=== PATIENT | female | born 1955 | race Caucasian/White ===

== ENCOUNTER 2023-04-18 02:46 | Emergency (ER) | payer MEDICARE, SELFPAY ==
--- NOTE | ~2023-04-18 | XR_ITS ---
Supine and upright views of the abdomen Clinical history: Foreign body Findings: Bowel gas pattern is nonspecific. No evidence for obstruction or free air. Calcified uterin e fibroid noted. Calcified splenic granulomas are present. Osseous structures are intact. Impression: No radiopaque foreign body evident. Calcified uterine fibroid. Reviewed, dictated and finalized at [facility]. ROENTEROLOGY TECHNICIAN Impression: No radiopaque foreign body evident. Calcified uterine fibroid.
[2023-04-18 02:50] VITALS: BP 185/98; PULSE 82; RESP 20; TEMP 36.9; O2SAT 98
--- NOTE | 2023-04-18 03:46 | ED.GENADULT ---
HPI - General Adult General Chief complaint: Unspecified Stated complaint: foreign body Time Seen by Provider: 04/18/23 03:39 Source: patient and police Mode of arrival: other (PD) Limitations: no limitations History of Present Illness HPI narrative: Patient is a 67 y/o female who presents to the ED via EMS with report of possible foreign body. Patient is currently under police custody. She was allegedly taken to [facility] where they performed a body scan of patient and saw a suspected foreign body in patient's vagina. She was then sent here for evaluation. Patient adamantly denies placing anything into her vagina or rectum, but consents to pelvic exam. Review of Systems Review of Systems: CONSTITUTIONAL: Denies fever, chills, or sweats. GASTROINTESTINAL: Denies abdominal pain, nausea, vomiting. GENITOURINARY: See HPI. MUSCULOSKELETAL: Denies back pain, extremity pain, myalgia. All systems reviewed & are unremarkable except as noted in HPI and below Exam Narrative: GENERAL: Appears older than stated age, well-nourished, non-toxic, in no acute distress. HEAD: Normocephalic, atraumatic. RESPIRATORY: Airway patent, respirations nonlabored. CARDIOVASCULAR: Regular rate and rhythm PELVIC: Normal external genitalia. No foreign body noted in vaginal vault. Cervix appears unremarkable, small area of friable skin. No bleeding or abnormal discharge. MUSCULOSKELETAL: Moves all extremities. No gross deformities. SKIN: Warm, dry, normal color. NEURO: A&O X3. Speech clear. PSYCHIATRIC: Appropriate mood and affect. Normal interaction. Course Vital Signs Vital signs: Vital Signs Temperature 98.5 F 04/18/23 02:50 Pulse Rate 82 04/18/23 02:50 Respiratory Rate 20 04/18/23 02:50 Blood Pressure 185/98 H 04/18/23 02:50 Pulse Oximetry 98 04/18/23 02:50 Oxygen Delivery Room Air 04/18/23 02:50 Temperature 98.5 F 04/18/23 02:50 Pulse Rate 82 04/18/23 02:50 Respiratory Rate 20 04/18/23 02:50 Blood Pressure 185/98 H 04/18/23 02:50 Pulse Oximetry 98 04/18/23 02:50 Oxygen Delivery Room Air 04/18/23 02:50 Medical Decision Making MDM Narrative Medical decision making narrative: Pelvic exam was explained to patient and patient fully consented to exam. Alert and oriented x4. Pelvic exam was performed by myself with drop pit worker at bedside and no foreign body was noted. I was able to visualize all the way back to the edge of patient's vaginal vault and did not see any foreign body. Patient adamantly denied placing anything into her rectum. Rectal exam was deferred. Abdominal x-ray was performed to rule out further radiopaque foreign body. Does appear patient has a calcified uterine fibroid. This is consistent in size and shape to what the police were seeing on their body scanner. Patient will be discharged into police custody at this time. Medical Records Medical records reviewed: Yes I reviewed the external patient's medical records. Vital Signs Vital Signs: Vital Signs Temperature 98.5 F 04/18/23 02:50 Pulse Rate 82 04/18/23 02:50 Respiratory Rate 20 04/18/23 02:50 Blood Pressure 185/98 H 04/18/23 02:50 Pulse Oximetry 98 04/18/23 02:50 Oxygen Delivery Room Air 04/18/23 02:50 Temperature 98.5 F 04/18/23 02:50 Pulse Rate 82 04/18/23 02:50 Respiratory Rate 20 04/18/23 02:50 Blood Pressure 185/98 H 04/18/23 02:50 Pulse Oximetry 98 04/18/23 02:50 Oxygen Delivery Room Air 04/18/23 02:50 Imaging Data Attestation: I personally reviewed and interpreted this imaging study as follows: My impression: XR ABD: calcified uterine fibroid. No other radiopaque FB noted. Discharge Plan Discharge Clinical Impression: Encounter for observation for suspected inserted (injected) foreign body ruled out Uterine fibroid Qualifiers: Uterine leiomyoma location: unspecified location Qualified Code(s): D25.9 - Leiomyoma of uterus, unspecified
== END 2023-04-18 04:15 ==
LOC: ANHED 03:59
PROVIDERS: Emergency Provider Physician Assistant
DX: Z02.89 Encounter for other administrative examinations (principal); D25.9 Leiomyoma of uterus, unspecified; Z03.823 Encounter for observation for suspected inserted (injected) foreign body ruled out
CPT/HCPCS: 74018; 99283